=== PATIENT | female | born 1980 | race Caucasian/White ===

== ENCOUNTER 2019-02-26 12:54 | Emergency (ER) | payer MEDICAID ==
[~2019-02-26] VITALS: Ht 152.4 cm; Wt 81.6 kg
[2019-02-26 13:00] VITALS: BP 151/92
--- NOTE | 2019-02-26 13:30 | NUR ---
DIZZINESS, AND FEELING HOT/BURNING ON R SIDE OF FACE, X1 WEEK. HX HTN RX LISINOPRIL, IBUPROFEN
[2019-02-26] MEDS ORDERED: ACETAMINOPHEN 325 MG TAB ONE (14:46)
--- NOTE | 2019-02-26 14:46 | NUR ---
ACETAMINOPHEN 650 PO GIVEN. Addendum: 02/26/19 at 1629 by [email or web address] REFER TO DOWNTIME.
--- NOTE | 2019-02-26 14:52 | NUR ---
PT TAKEN TO CT VIA W/C.
[2019-02-26 16:48] VITALS: BP 145/83
--- NOTE | 2019-02-26 16:48 | NUR ---
Patient discharged with v/s stable. Written and verbal after care instructions given and explained. Patient alert, oriented and verbalized understanding of instructions. Ambulatory with steady gait. All questions addressed prior to discharge. ID band removed. Patient advised to follow up with PMD. Rx of NORCO 5MG WAS given. Patient educated on indication of medication including possible reaction and side effects. Opportunity to ask questions provided and answered.
== END 2019-02-26 16:48 | disposition home or self-care (01) ==
LOC: MED 12:54
DX: R51 Headache (principal); F32.9 Major depressive disorder, single episode, unspecified; I10 Essential (primary) hypertension
CPT/HCPCS: 70450; 81025; 99284

== ENCOUNTER 2020-06-04 23:38 | Emergency (ER) | payer MEDICAID ==
[~2020-06-04] VITALS: Ht 154.9 cm; Wt 74.8 kg
[2020-06-04 23:41] VITALS: BP 144/90
[2020-06-05] MEDS ORDERED: IBUP-2213 PO (01:36)
[2020-06-05] MEDS ORDERED: CEPH500C16 PO (01:36)
[2020-06-05] MEDS ORDERED: METR500T1 PO (01:36)
[2020-06-05 01:45] VITALS: BP 132/88
== END 2020-06-05 01:45 | disposition home or self-care (01) ==
LOC: MED 23:38
DX: N81.4 Uterovaginal prolapse, unspecified (principal); N39.0 Urinary tract infection, site not specified; N76.0 Acute vaginitis; B96.89 Other specified bacterial agents as the cause of diseases classified elsewhere; I10 Essential (primary) hypertension; Z79.899 Other long term (current) drug therapy
CPT/HCPCS: 81002; 81025; 87210; 99283